=== PATIENT | male | born 1955 | race Caucasian/White ===

== ENCOUNTER 2018-11-27 22:29 | Inpatient (IN) | payer OTHER ==
--- NOTE | 2018-11-27 22:42 | ED ---
General Adult HPI - General Chief complaint: Abdominal Pain Stated complaint: Abd pain Time Seen by Provider: 11/27/18 22:41 Source: patient, RN notes reviewed Mode of arrival: ambulatory Limitations: no limitations - History of Present Illness Initial comments: 63-year-old male presents to the emergency department for multiple complaints. Patient states that on Wednesday he had about 4-5 hours of epigastric pain radiating to the left side of his chest and mid back and states he was also nauseous and dry heaving at this time. States that this resolved after a few hours. Patient states that today he started have a similar situation a few hours ago. States he is still expressing these symptoms but is very mild. States he is nauseous at this time. His biggest complaint is epigastric pain. She denies history of hypertension. States he had some type of arrhythmia in the past but had a negative stress test and I thought this was likely due to emotional stress. Otherwise he has not had any cardiac history. Borderline hypercholesterolemia. Patient has no other complaints at this time including shortness of breath, chest pain, abdominal pain, nausea or vomiting, headache, or visual changes. - Related Data Home Medications Medication Instructions Recorded Confirmed Fruit Based Multivitamin(Unknown) 1 tab PO DAILY 11/28/18 11/28/18 Allergies Allergy/AdvReac Type Severity Reaction Status Date / Time tetanus immune globulin Allergy Anaphylaxis Verified 11/28/18 07:51 Review of Systems ROS Statement: Those systems with pertinent positive or pertinent negative responses have been documented in the HPI. ROS Other: All systems not noted in ROS Statement are negative. Past Medical History Past Medical History: No Reported History History of Any Multi-Drug Resistant Organisms: None Reported Past Surgical History: Hernia Repair, Orthopedic Surgery Past Psychological History: No Psychological Hx Reported Smoking Status: Former smoker Past Alcohol Use History: Rare Past Drug Use History: None Reported - Past Family History Mother Additional Family Medical History / Comment(s): ALS Brother(s) Additional Family Medical History / Comment(s): ALS General Exam Limitations: no limitations General appearance: alert, in no apparent distress Head exam: Present: atraumatic, normocephalic, normal inspection Eye exam: Present: normal appearance, PERRL, EOMI. Absent: scleral icterus, conjunctival injection, periorbital swelling ENT exam: Present: normal exam, mucous membranes moist Neck exam: Present: normal inspection, full ROM. Absent: tenderness, m eningismus, lymphadenopathy Respiratory exam: Present: normal lung sounds bilaterally. Absent: respiratory distress, wheezes, rales, rhonchi, stridor Cardiovascular Exam: Present: regular rate, normal rhythm, normal heart sounds. Absent: systolic murmur, diastolic murmur, rubs, gallop, clicks GI/Abdominal exam: Present: soft, normal bowel sounds. Absent: distended, tenderness (Patient denies epigastric tenderness but has guarding when palpating the epigastric and right and left upper quadrants. No lower abdominal te nderness or guarding.), guarding, rebound, rigid Neurological exam: Present: alert Psychiatric exam: Present: normal affect, normal mood Course Vital Signs 11/27/18 11/28/18 11/28/18 22:32 00:41 03:27 Temperature 98.3 F 98.1 F Pulse Rate 63 68 80 Respiratory 20 18 18 Rate Blood Pressure 152/80 147/84 133/74 O2 Sat by Pulse 97 98 95 Oximetry EKG Findings - EKG Comments: EKG Findings:: NSR, vent rate 60, pr int 170, qtc 414 Medical Decision Making - Medical Decision Making 43-year-old male presents for multiple complaints. States that on Wednesday he had about 4-5 hours of epigastric pain that radiated to the left side of his chest and mid back. States he was also nauseous and dry heaving at that time. His symptoms resolved and then recurred today about 2 days later and lasted several hours. States it is mild at this time. On exam patient has guarding when palpating the epigastric right upper quadrant region but does not have tenderness and denies pain with palpation. CBC did show a white blood cell count of 16.1. CMP is unremarkable. Troponin is negative. Urine negative. CT chest abdomen and pelvis was ordered given patient's symptoms of epigastric chest and back pain. She was reevaluated, resting comfortably and Care was signed out to Dr. Kirk at [address] results - Lab Data Result diagrams: 11/30/18 07:50 11/30/18 07:50 Lab Results 11/27/18 11/27/18 11/27/18 Range/Units 23:05 23:05 23:05 WBC 16.1 H (3.8-10.6) k/uL RBC 5.53 (4.30-5.90) m/uL Hgb 16.0 (13.0-17.5) gm/dL Hct 47.4 (39.0-53.0) % MCV 85.8 (80.0-100.0) fL MCH 29.0 (25.0-35.0) pg MCHC 33.8 (31.0-37.0) g/dL RDW 15.9 H (11.5-15.5) % Plt Count 259 (150-450) k/uL Neutrophils % 86 % Lymphocytes % 8 % Monocytes % 4 % Eosinophils % 1 % Basophils % 1 % Neutrophils # 13.8 H (1.3-7.7) k/uL Lymphocytes # 1.2 (1.0-4.8) k/uL Monocytes # 0.7 (0-1.0) k/uL Eosinophils # 0.2 (0-0.7) k/uL Basophils # 0.1 (0-0.2) k/uL PT 10.3 (9.0-12.0) sec INR 1.0 (<1.2) APTT 26.8 (22.0-30.0) sec Sodium 141 (137-145) mmol/L Potassium 4.2 (3.5-5.1) mmol/L Chloride 105 (98-107) mmol/L Carbon Dioxide 27 (22-30) mmol/L Anion Gap 9 mmol/L BUN 16 (9-20) mg/dL Creatinine 1.05 (0.66-1.25) mg/dL Est GFR (CKD-EPI)AfAm 87 (>60 ml/min/1.73 sqM) Est GFR (CKD-EPI)NonAf 75 (>60 ml/min/1.73 sqM) Glucose 116 H (74-99) mg/dL Calcium 9.1 (8.4-10.2) mg/dL Total Bilirubin 0.5 (0.2-1.3) mg/dL AST 27 (17-59) U/L ALT 25 (21-72) U/L Alkaline Phosphatase 73 (38-126) U/L CK-MB (CK-2) (0.0-2.4) ng/mL Troponin I (0.000-0.034) ng/mL Total Protein 7.2 (6.3-8.2) g/dL Albumin 4.3 (3.5-5.0) g/dL Amylase 55 (30-110) U/L Lipase 130 (23-300) U/L Urine Color Urine Appearance (Clear) Urine pH (5.0-8.0) Ur Specific [place] (1.001-1.035) Urine Protein (Negative) Urine Glucose (UA) (Negative) Urine Ketones (Negative) Urine Blood (Negative) Urine Nitrite (Negative) Urine Bilirubin (Negative) Urine Urobilinogen (<2.0) mg/dL Ur Leukocyte Esterase (Negative) 11/27/18 11/27/18 11/29/18 Range/Units 23:05 23:05 07:26 WBC 8.8 (3.8-10.6) k/uL RBC 5.26 (4.30-5.90) m/uL Hgb 15.0 (13.0-17.5) gm/dL Hct 45.6 (39.0-53.0) % MCV 86.6 (80.0-100.0) fL MCH 28.6 (25.0-35.0) pg MCHC 33.0 (31.0-37.0) g/dL RDW 13.4 (11.5-15.5) % Plt Count 233 (150-450) k/uL Neutrophils % 70 % Lymphocytes % 17 % Monocytes % 9 % Eosinophils % 2 % Basophils % 1 % Neutrophils # 6.2 (1.3-7.7) k/uL Lymphocytes # 1.5 (1.0-4.8) k/uL Monocytes # 0.8 (0-1.0) k/uL Eosinophils # 0.2 (0-0.7) k/uL Basophils # 0.1 (0-0.2) k/uL PT (9.0-12.0) sec INR (<1.2) APTT (22.0-30.0) sec Sodium (137-145) mmol/L Potassium (3.5-5.1) mmol/L Chloride (98-107) mmol/L Carbon Dioxide (22-30) mmol/L Anion Gap mmol/L BUN (9-20) mg/dL Creatinine (0.66-1.25) mg/dL Est GFR (CKD-EPI)AfAm (>60 ml/min/1.73 sqM) Est GFR (CKD-EPI)NonAf (>60 ml/min/1.73 sqM) Glucose (74-99) mg/dL Calcium (8.4-10.2) mg/dL Total Bilirubin (0.2-1.3) mg/dL AST (17-59) U/L ALT (21-72) U/L Alkaline Phosphatase (38-126) U/L CK-MB (CK-2) 0.6 (0.0-2.4) ng/mL Troponin I <0.012 (0.000-0.034) ng/mL Total Protein (6.3-8.2) g/dL Albumin (3.5-5.0) g/dL Amylase (30-110) U/L Lipase (23-300) U/L Urine Color Yellow Urine Appearance Clear (Clear) Urine pH 6.0 (5.0-8.0) Ur Specific [place] 1.022 (1.001-1.035) Urine Protein Negative (Negative) Urine Glucose (UA) Negative (Negative) Urine Ketones Negative (Negative) Urine Blood Negative (Negative) Urine Nitrite Negative (Negative) Urine Bilirubin Negative (Negative) Urine Urobilinogen <2.0 (<2.0) mg/dL Ur Leukocyte Esterase Negative (Negative) 11/29/18 11/29/18 Range/Units 07:26 07:26 WBC (3.8-10.6) k/uL RBC (4.30-5.90) m/uL Hgb (13.0-17.5) gm/dL Hct (39.0-53.0) % MCV (80.0-100.0) fL MCH (25.0-35.0) pg MCHC (31.0-37.0) g/dL RDW (11.5-15.5) % Plt Count (150-450) k/uL Neutrophils % % Lymphocytes % % Monocytes % % Eosinophils % % Basophils % % Neutrophils # (1.3-7.7) k/uL Lymphocytes # (1.0-4.8) k/uL Monocytes # (0-1.0) k/uL Eosinophils # (0-0.7) k/uL Basophils # (0-0.2) k/uL PT 11.8 (9.0-12.0) sec INR 1.1 (<1.2) APTT (22.0-30.0) sec Sodium 141 (137-145) mmol/L Potassium 3.9 (3.5-5.1) mmol/L Chloride 109 H (98-107) mmol/L Carbon Dioxide 24 (22-30) mmol/L Anion Gap 8 mmol/L BUN 11 (9-20) mg/dL Creatinine 1.04 (0.66-1.25) mg/dL Est GFR (CKD-EPI)AfAm 88 (>60 ml/min/1.73 sqM) Est GFR (CKD-EPI)NonAf 76 (>60 ml/min/1.73 sqM) Glucose 89 (74-99) mg/dL Calcium 8.4 (8.4-10.2) mg/dL Total Bilirubin 2.4 H (0.2-1.3) mg/dL AST 139 H (17-59) U/L ALT 163 H (21-72) U/L Alkaline Phosphatase 104 (38-126) U/L CK-MB (CK-2) (0.0-2.4) ng/mL Troponin I (0.000-0.034) ng/mL Total Protein 6.1 L (6.3-8.2) g/dL Albumin 3.5 (3.5-5.0) g/dL Amylase (30-110) U/L Lipase (23-300) U/L Urine Color Urine Appearance (Clear) Urine pH (5.0-8.0) Ur Specific [place] (1.001-1.035) Urine Protein (Negative) Urine Glucose (UA) (Negative) Urine Ketones (Negative) Urine Blood (Negative) Urine Nitrite (Negative) Urine Bilirubin (Negative) Urine Urobilinogen (<2.0) mg/dL Ur Leukocyte Esterase (Negative) Disposition Clinical Impression: Acute cholecystitis Disposition: ADMITTED IP TO THIS HOSP Is patient prescribed a controlled substance at d/c from ED?: No
[2018-11-27] MEDS ORDERED: SODIUM CHLORIDE 0.9% 500 ML 500 ML IV STA (22:53)
[2018-11-27 23:18] LABS: Basophils # (A) 0.1 k/uL (0-0.2); Basophils % (A) 1 %; Eosinophils # (A) 0.2 k/uL (0-0.7); Eosinophils % (A) 1 %; HCT 47.4 % (39.0-53.0); Lymphocytes # (A) 1.2 k/uL (1.0-4.8); Lymphocytes % (A) 8 %; MCHC 33.8 g/dL (31.0-37.0); MCV 85.8 fL (80.0-100.0); Monocytes # (A) 0.7 k/uL (0-1.0); Monocytes % (A) 4 %; Neutrophils # (A) 13.8 k/uL (1.3-7.7); Neutrophils % (A) 86 %; Platelet Count 259 k/uL (150-450); RBC 5.53 m/uL (4.30-5.90); RDW 15.9 % (11.5-15.5); WBC 16.1 k/uL (3.8-10.6)
[2018-11-27 23:24] LABS: Appearance,Urine Clear (Clear); Bilirubin,Urine Negative (Negative); Blood,Urine Negative (Negative); Color,Urine Yellow; Glucose,Urine (UA) Negative (Negative); Ketones,Urine Negative (Negative); Leukocyte Esterase,Urine Negative (Negative); Nitrite,Urine Negative (Negative); Protein,Urine Negative (Negative); Specific Gravity,Urine 1.022 (1.001-1.035); Urobilinogen,Urine <2.0 mg/dL (<2.0)
[2018-11-27 23:26] LABS: Albumin 4.3 g/dL (3.5-5.0); Calcium 9.1 mg/dL (8.4-10.2); Potassium 4.2 mmol/L (3.5-5.1); Total Bilirubin 0.5 mg/dL (0.2-1.3); Total Protein 7.2 g/dL (6.3-8.2)
[2018-11-27 23:30] LABS: Partial Thromboplastin Time 26.8 sec (22.0-30.0); Prothrombin Time 10.3 sec (9.0-12.0)
[2018-11-27 23:50] LABS: Creatine Kinase MB 0.6 ng/mL (0.0-2.4); Troponin I <0.012 ng/mL (0.000-0.034)
[2018-11-28] MEDS ORDERED: HYDROmorphone 0.5 MG/0.5 ML SYRINGE IVP STA (00:25)
--- NOTE | 2018-11-28 02:35 | CT ---
EXAM: CT Chest ,abdomen and pelvis With Intravenous Contrast CLINICAL HISTORY: CP/epigastric pain/back pain TECHNIQUE: Axial computed tomography images of the chest, abdomen and pelvis with intravenous contrast. DLP is 1544.9 mGy-cm. This CT exam was performed using one or more of the following dose reduction techniques: automated exposure control, adjustment of the mA and/or kV according to patient size, and/or use of iterative reconstruction technique. COMPARISON: No relevant prior studies available. FINDINGS: Aorta is non-aneurysmal without dissection. Cholelithiasis. Suspect stones in region of cystic duct. Possible mild mural thickening of gallbladder/mild adjacent fat stranding. Findings are suspicious for cholecystitis. Ultrasound and/or HIDA could be obtained, as indicated. Atelectasis and/or scar. No evidence for edema. No effusions. No consolidation. No evidence for acute pancreatitis or other acute abnormality of the solid viscera. Mild prostate enlargement. No bowel obstruction. Diverticulosis without diverticulitis. No appendicitis. Small duodenal diverticulum incidentally noted. Fat- containing inguinal hernias. Suspect prior hernia mesh placement. Osseous degenerative changes. IMPRESSION: Aorta is non-aneurysmal without dissection. Cholelithiasis with suggestion of stones in region of cystic duct. Possible mild mural thickening of gallbladder/mild adjacent fat stranding. Findings are suspicious for cholecystitis. Ultrasound and/or HIDA could be obtained, as indicated. Incidental findings, as above.
[2018-11-28] MEDS ORDERED: PIPERACILLIN-TAZOBACTAM 3.375 GM in SODIUM CHLORIDE 0.9% 100 ML IVPB STA (03:12)
[2018-11-28] MEDS: SODIUM CHLORIDE 0.9% 1,000 ML IV SCH ×3 (03:30→21:05)
[2018-11-28] MEDS ORDERED: NALOXONE 0.4 MG/ML 1 ML VIAL IV PRN (03:50)
[2018-11-28] MEDS ORDERED: ONDANSETRON 4 MG/2 ML VIAL IVP PRN (03:50)
[2018-11-28 05:30] VITALS: BMI 30.2
[2018-11-28] MEDS: MORPHINE SULFATE 4 MG/ML SYRINGE IV PRN (08:10)
--- NOTE | 2018-11-28 11:28 | P.HPIM ---
History of Present Illness This is a pleasant 63 years old male with past medical history of hernia repair. No other significant past medical history. He was not on home medication. He presents because of recurrent abdominal pain that happened 2 days ago, went away and came back yesterday, patient this. Umbilical about it/10 in severity felt like squeezing comes in waves. Associated with worst part and the RUQ area with tenderness. Also associated with nausea vomiting, he vomited about 5-6 times with no blood. He has little bowel movement with no blood. No shoulder pain. No fever. No chest pain or dyspnea. Patient is afebrile and vitals are stable. He has mild leukocytosis of 16.1 K, rest of labs including liver enzymes and creatinine are within normal limits. Urinalysis is not significant for infection. EKG showing normal sinus rhythm at [address] of the abdomen and pelvis with intravenous contrast showing stones in the region of the cystic duct and possible cholecystitis. No other acute abnormality as per radiologist. On admission patient was started on pain medication and Zosyn as well as IV fluids. Review of Systems CONSTITUTIONAL: No fever, no malaise, no fatigue. HEENT: No recent visual problems or hearing problems. Denied any sore throat. CARDIOVASCULAR: No orthopnea, PND, no palpitations, no syncope. PULMONARY: No shortness of breath, no cough, no hemoptysis. GASTROINTESTINAL: No diarrhea, no nausea, no vomiting, no abdominal pain. Normoactive bowel sounds. NEUROLOGICAL: No headaches, no weakness, no numbness. HEMATOLOGICAL: Denies any bleeding or petechiae. GENITOURINARY: Denies any burning micturition, frequency, or urgency. MUSCULOSKELETAL/RHEUMATOLOGICAL: Denies any joint pain, swelling, or any muscle pain. ENDOCRINE: Denies any polyuria or polydipsia. Past Medical History Past Medical History: No Reported History History of Any Multi-Drug Resistant Organisms: None Reported Past Surgical History: Hernia Repair, Orthopedic Surgery Additional Past Surgical History / Comment(s): Left knee surgery Past Psychological History: No Psychological Hx Reported Smoking Status: Former smoker Past Alcohol Use History: Rare Additional Past Alcohol Use History / Comment(s): quit smoking 1989 Past Drug Use History: None Reported - Past Family History Mother Additional Family Medical History / Comment(s): ALS Brother(s) Additional Family Medical History / Comment(s): ALS Medications and Allergies Home Medications Medication Instructions Recorded Confirmed Type Fruit Based Multivitamin(Unknown) 1 tab PO DAILY 11/28/18 11/28/18 History Allergies Allergy/AdvReac Type Severity Reaction Status Date / Time tetanus immune globulin Allergy Anaphylaxis Verified 11/28/18 07:51 Physical Exam Vitals: Vital Signs Temp Pulse Pulse Resp BP BP Pulse Ox 11/28/18 07:40 16 11/28/18 05:30 98.5 F 71 18 122/94 94 L 11/28/18 03:27 98.1 F 80 18 133/74 95 11/28/18 00:41 68 18 147/84 98 11/27/18 22:32 98.3 F 63 20 152/80 97 Intake and Output 11/27/18 11/28/18 11/28/18 22:59 06:59 14:59 Intake Total 120 Balance 120 Intake: Intake, IV Titration 120 Amount Sodium Chloride 0.9% 1, 120 000 ml @ 120 mls/hr IV . Q8H20M [facility] Rx#:[id number] Other: Voiding Method Toilet Toilet Weight 92.986 kg GENERAL: The patient is alert and oriented x3, not in any acute distress. Well developed, well nourished. HEENT: Pupils are round and equally reacting to light. EOMI. No scleral icterus. No conjunctival pallor. Normocephalic, atraumatic. No pharyngeal erythema. No thyromegaly. CARDIOVASCULAR: S1 and S2 present. No murmurs, rubs, or gallops. PULMONARY: Chest is clear to auscultation, no wheezing or crackles. -ABDOMEN: Soft, mild RUQ tenderness, no rebound tenderness, nondistended, normoactive bowel sounds. No palpable organomegaly. MUSCULOSKELETAL: No joint swelling or deformity. EXTREMITIES: No cyanosis, clubbing, or pedal edema. NEUROLOGICAL: Gross neurological examination did not reveal any focal deficits. SKIN: No rashes. Results CBC & Chem 7: 11/27/18 23:05 11/27/18 23:05 Labs: Abnormal Lab Results - Last 24 Hours (Table) 11/27/18 11/27/18 Range/Units 23:05 23:05 WBC 16.1 H (3.8-10.6) k/uL RDW 15.9 H (11.5-15.5) % Neutrophils # 13.8 H (1.3-7.7) k/uL Glucose 116 H (74-99) mg/dL Thrombosis Risk Factor Assmnt - Choose All That Apply Any of the Below Risk Factors Present?: Yes Each Factor Represents 1 point: Obesity (BMI >25) Other Risk Factors: Yes Each Risk Factor Represents 2 Points: Age 61-74 years Other congenital or acquired thrombophilia - If yes, enter type in comment: No Thrombosis Risk Factor Assessment Total Risk Factor Score: 3 Thrombosis Risk Factor Assessment Level: Moderate Risk Assessment and Plan Assessment: Most likely acute cholecystitis RUQ tenderness secondary to above Gallstone and stenosis close to cystic duct Leukocytosis, secondary to above Plan: This is a pleasant 63 years old male who presents with acute cholecystitis. Continue with IV fluids, antibiotics and pain management. We'll do a liver ultrasound and follow-up with surgery recommendation. Labs and medication were reviewed.. Continue same treatment. Continue with symptomatic treatment. Resume home medication. Monitor lytes and vitals. DVT and GI prophylaxis. Further recommendations of the clinical course of the patient DVT prophylaxis: Subcutaneous heparin GI Prophylaxis: Pepcid PT/OT: Pending Prognosis is guarded
[2018-11-28] MEDS: PIPERACILLIN-TAZOBACTAM 3.375 GM in SODIUM CHLORIDE 0.9% 100 ML IVPB SCH ×2 (11:56→21:05)
--- NOTE | 2018-11-28 15:22 | US ---
EXAMINATION TYPE: US liver DATE OF EXAM: 11/28/2018 COMPARISON: Correlation CT same day CLINICAL HISTORY: 63-year-old male Cholecystitis. ABD pain, abnormal CT TECHNIQUE: Multiple sonographic images of the right upper quadrant are obtained. FINDINGS: EXAM MEASUREMENTS: Liver Length: 15.3 cm Gallbladder Wall: 0.4 cm CBD: 0.8 cm Right Kidney: 9.7 x 4.9 x 5.0 cm Pancreas: wnl, head and tail obscured by overlying bowel gas Liver: wnl Gallbladder: Hydropic with Sludge, gallstones, thickened wall Evidence for sonographic Maharaj's sign: No CBD: Dilated Right Kidney: wnl IMPRESSION: 1. Bile duct dilated at 8 mm. Correlate with alkaline phosphatase and bilirubin levels to exclude rhina iary obstruction/choledocholithiasis. 2. Hydropic gallbladder with sludge, calculi, and mild wall thickening. However, sonographic Maharaj s ign is reported absent. Correlate for any pain medication administration in the ER, in which case, ea rly acute cholecystitis would be difficult to exclude. If further imaging evaluation is desired, HIDA scan can be performed.
--- NOTE | 2018-11-28 17:54 | P.GSCN ---
History of Present Illness Consult date: 11/28/18 History of present illness: This is a 63-year-old male who presents with a chief complaint of right upper quadrant pain which began on Wednesday. Wednesday night the pain was bad enough that he presented to the emergency room. He denies any nausea or vomiting. He denies any change in his bowel movements. He's had similar pains before but they've never lasted as long. He denies fevers or chills. He states that today's feeling somewhat better however he can still feel minor pains in his right upper quadrant. Specimen surgical history significant only for a laparos copic inguinal hernia repair. He denies any past medical history. He is not on any medications. Past Medical History Past Medical History: No Reported History History of Any Multi-Drug Resistant Organisms: None Reported Past Surgical History: Hernia Repair, Orthopedic Surgery Additional Past Surgical History / Comment(s): Left knee surgery Past Psychological History: No Psychological Hx Reported Smoking Status: Former smoker Past Alcohol Use History: Rare Additional Past Alcohol Use History / Comment(s): quit smoking 1989 Past Drug Use History: None Reported - Past Family History Mother Additional Family Medical History / Comment(s): ALS Brother(s) Additional Family Medical History / Comment(s): ALS Medications and Allergies Home Medications Medication Instructions Recorded Confirmed Type Fruit Based Multivitamin(Unknown) 1 tab PO DAILY 11/28/18 11/28/18 History Allergies Allergy/AdvReac Type Severity Reaction Status Date / Time tetanus immune globulin Allergy Anaphylaxis Verified 11/28/18 07:51 Surgical - Exam Osteopathic Statement: *. No significant issues noted on an osteopathic structural exam other than those noted in the History and Physical/Consult. Vital Signs Temp Pulse Resp BP Pulse Ox 98.3 F 63 20 152/80 97 11/27/18 22:32 11/27/18 22:32 11/27/18 22:32 11/27/18 22:32 11/27/18 22:32 - General well developed, well nourished, no distress - Eyes PERRL - Neck trachea midline - Respiratory normal expansion, normal respiratory effort - Cardiovascular Rhythm: regular - Abdomen Nondistended minimal tenderness palpation in the right upper quadrant. Abdomen: soft - Neurologic normal coordination, normal sensation - Psychiatric oriented to time, oriented to person, oriented to place Results - Labs 11/27/18 23:05 11/27/18 23:05 Abnormal Lab Results - Last 24 Hours (Table) 11/27/18 11/27/18 Range/Units 23:05 23:05 WBC 16.1 H (3.8-10.6) k/uL RDW 15.9 H (11.5-15.5) % Neutrophils # 13.8 H (1.3-7.7) k/uL Glucose 116 H (74-99) mg/dL Diabetes panel 11/27/18 Range/Units 23:05 Sodium 141 (137-145) mmol/L Potassium 4.2 (3.5-5.1) mmol/L Chloride 105 (98-107) mmol/L Carbon Dioxide 27 (22-30) mmol/L BUN 16 (9-20) mg/dL Creatinine 1.05 (0.66-1.25) mg/dL Glucose 116 H (74-99) mg/dL Calcium 9.1 (8.4-10.2) mg/dL AST 27 (17-59) U/L ALT 25 (21-72) U/L Alkaline Phosphatase 73 (38-126) U/L Total Protein 7.2 (6.3-8.2) g/dL Albumin 4.3 (3.5-5.0) g/dL Calcium panel 11/27/18 Range/Units 23:05 Calcium 9.1 (8.4-10.2) mg/dL Albumin 4.3 (3.5-5.0) g/dL Pituitary panel 11/27/18 Range/Units 23:05 Sodium 141 (137-145) mmol/L Potassium 4.2 (3.5-5.1) mmol/L Chloride 105 (98-107) mmol/L Carbon Dioxide 27 (22-30) mmol/L BUN 16 (9-20) mg/dL Creatinine 1.05 (0.66-1.25) mg/dL Glucose 116 H (74-99) mg/dL Calcium 9.1 (8.4-10.2) mg/dL Adrenal panel 11/27/18 Range/Units 23:05 Sodium 141 (137-145) mmol/L Potassium 4.2 (3.5-5.1) mmol/L Chloride 105 (98-107) mmol/L Carbon Dioxide 27 (22-30) mmol/L BUN 16 (9-20) mg/dL Creatinine 1.05 (0.66-1.25) mg/dL Glucose 116 H (74-99) mg/dL Calcium 9.1 (8.4-10.2) mg/dL Total Bilirubin 0.5 (0.2-1.3) mg/dL AST 27 (17-59) U/L ALT 25 (21-72) U/L Alkaline Phosphatase 73 (38-126) U/L Total Protein 7.2 (6.3-8.2) g/dL Albumin 4.3 (3.5-5.0) g/dL Assessment and Plan Assessment: Acute cholecystitis Plan: Patient has clinical signs and imaging consistent with acute cholecystitis. I discussed laparoscopic cholecystectomy with the patient. Risks benefits and alternatives including risks of bleeding infection damage to surrounding tissue need for further operation need for conversion to open and common bile duct injury were all discussed with the patient in detail he stated he understood these risks agreed and consented to the procedure. He'll be continued on IV antibiotics. Nothing by mouth after midnight. He may have clears tonight. Plan for surgery tomorrow
[2018-11-28] MEDS: FAMOTIDINE 20 MG/2 ML VIAL IV SCH (21:06)
[2018-11-28] MEDS: HEPARIN SODIUM,PORCINE 5,000 UNIT/ML 1 ML VIAL SQ SCH (21:06)
[2018-11-29] MEDS: PIPERACILLIN-TAZOBACTAM 3.375 GM in SODIUM CHLORIDE 0.9% 100 ML IVPB SCH ×3 (04:28→19:43)
[2018-11-29] MEDS: SODIUM CHLORIDE 0.9% 1,000 ML IV SCH ×3 (04:28→21:44)
--- NOTE | 2018-11-29 07:28 | P.PN ---
Subjective This is a pleasant 63 years old male with past medical history of hernia repair. No other significant past medical history. He was not on home medication. He presents because of recurrent abdominal pain that happened 2 days ago, went away and came back yesterday, patient this. Umbilical about it/10 in severity felt like squeezing comes in waves. Associated with worst part and the RUQ area with tenderness. Also associated with nausea vomiting, he vomited about 5-6 times with no blood. He has little bowel movement with no blood. No shoulder pain. No fever. No chest pain or dyspnea. Patient is afebrile and vitals are stable. He has mild leukocytosis of 16.1 K, rest of labs including liver enzymes and creatinine are within normal limits. Urinalysis is not significant for infection. EKG showing normal sinus rhythm at [address] of the abdomen and pelvis with intravenous contrast showing stones in the region of the cystic duct and possible cholecystitis. No other acute abnormality as per radiologist. On admission patient was started on pain medication and Zosyn as well as IV fluids. 11/29/2018 Patient came with abdominal pain and right upper quadrant tenderness, pain is improving. No more nausea vomiting. However today he is nothing by mouth for possible laparoscopic cholecystectomy by the surgical team. Yesterday we repeated his liver ultrasound in view of abnormal gallbladder and biliary passages seen on the CAT scan of the abdomen. Liver with ultrasound showing dilated bile duct at 8 mm and hydropic gallbladder with sludge, calculi and mild wall thickening that goes on with his diagnosis of acute cholecystitis. Review of systems CONSTITUTIONAL: No fever, no malaise, no fatigue. HEENT: No recent visual problems or hearing problems. Denied any sore throat. CARDIOVASCULAR: No orthopnea, PND, no palpitations, no syncope. PULMONARY: No shortness of breath, no cough, no hemoptysis. GASTROINTESTINAL: Normoactive bowel sounds. NEUROLOGICAL: No headaches, no weakness, no numbness. HEMATOLOGICAL: Denies any bleeding or petechiae. GENITOURINARY: Denies any burning micturition, frequency, or urgency. MUSCULOSKELETAL/RHEUMATOLOGICAL: Denies any joint pain, swelling, or any muscle pain. ENDOCRINE: Denies any polyuria or polydipsia. Active Medications Generic Name Dose Route Start Last Admin Trade Name Freq PRN Reason Stop Dose Admin Famotidine 20 mg 11/28/18 21:00 11/28/18 21:06 Pepcid IV 20 mg Q12HR [facility] Administration Heparin Sodium (Porcine) 5,000 unit 11/28/18 21:00 11/28/18 21:06 Heparin SQ 5,000 unit Q12HR [facility] Administration Sodium Chloride 1,000 mls @ 120 mls/hr 11/28/18 03:30 11/29/18 04:28 Saline 0.9% IV 120 mls/hr .Q8H20M [facility] Administration Piperacillin Sod/Tazobactam 100 mls @ 25 mls/hr 11/28/18 12:00 11/29/18 04:28 Sod 3.375 gm/ Sodium Chloride IVPB 25 mls/hr Q8H [facility] Administration Morphine Sulfate 4 mg 11/28/18 03:50 11/28/18 08:10 Morphine Sulfate (Inj) IV 4 mg Q4HR PRN Administration Severe Pain Naloxone HCl 0.2 mg 11/28/18 03:50 Narcan IV Q2M PRN Opioid Reversal Ondansetron HCl 4 mg 11/28/18 03:50 Zofran IVP Q8HR PRN Nausea And Vomiting Objective - Vital Signs Vital signs: Vital Signs Temp 98.4 F 11/29/18 05:00 Pulse 63 11/29/18 05:00 Resp 18 11/29/18 05:00 BP 113/64 11/29/18 05:00 Pulse Ox 93 L 11/29/18 05:00 Intake & Output 11/28/18 11/29/18 11/29/18 18:59 06:59 18:59 Intake Total 1080 2240 Balance 1080 2240 Intake: Intake, IV Titration 1080 1640 Amount Piperacillin-Tazobactam 3 100 200 .375 gm In Sodium Chloride 0.9% 100 ml @ 25 mls/hr IVPB Q8H [facility] Rx#: [id number] Sodium Chloride 0.9% 1, 980 1440 000 ml @ 120 mls/hr IV . Q8H20M [facility] Rx#:[id number] Oral 600 Other: Voiding Method Toilet Toilet # Voids 3 4 - Exam GENERAL: The patient is alert and oriented x3, not in any acute distress. Well developed, well nourished. HEENT: Pupils are round and equally reacting to light. EOMI. No scleral icterus. No conjunctival pallor. Normocephalic, atraumatic. No pharyngeal erythema. No thyromegaly. CARDIOVASCULAR: S1 and S2 present. No murmurs, rubs, or gallops. PULMONARY: Chest is clear to auscultation, no wheezing or crackles. -ABDOMEN: Soft, mild RUQ tenderness, no rebound tenderness, nondistended, normoactive bowel sounds. No palpable organomegaly. MUSCULOSKELETAL: No joint swelling or deformity. EXTREMITIES: No cyanosis, clubbing, or pedal edema. NEUROLOGICAL: Gross neurological examination did not reveal any focal deficits. SKIN: No rashes. - Labs CBC & Chem 7: 11/27/18 23:05 11/27/18 23:05 Assessment and Plan Assessment: Most likely acute cholecystitis RUQ tenderness secondary to above Gallstone and stenosis close to cystic duct Leukocytosis, secondary to above Plan: This is a pleasant 63 years old male who presents with acute cholecystitis. Continue with IV fluids, antibiotics and pain management. Will follow-up in the surgery recommendation and for postop care, patient is for laparoscopic cholecystectomy by the surgical team. Follow-up WBC Labs and medication were reviewed.. Continue same treatment. Continue with symptomatic treatment. Resume home medication. Monitor lytes and vitals. DVT and GI prophylaxis. Further recommendations of the clinical course of the patient DVT prophylaxis: Subcutaneous heparin GI Prophylaxis: Pepcid PT/OT: Pending Prognosis is guarded
[2018-11-29 07:39] LABS: Basophils # (A) 0.1 k/uL (0-0.2); Basophils % (A) 1 %; Eosinophils # (A) 0.2 k/uL (0-0.7); Eosinophils % (A) 2 %; HCT 45.6 % (39.0-53.0); Lymphocytes # (A) 1.5 k/uL (1.0-4.8); Lymphocytes % (A) 17 %; MCH 28.6 pg (25.0-35.0); MCV 86.6 fL (80.0-100.0); Mean Platelet Volume 6.9; Monocytes # (A) 0.8 k/uL (0-1.0); Monocytes % (A) 9 %; Neutrophils # (A) 6.2 k/uL (1.3-7.7); Neutrophils % (A) 70 %; Platelet Count 233 k/uL (150-450); RBC 5.26 m/uL (4.30-5.90); RDW 13.4 % (11.5-15.5); WBC 8.8 k/uL (3.8-10.6)
[2018-11-29 07:42] LABS: INR 1.1 (<1.2); Prothrombin Time 11.8 sec (9.0-12.0)
[2018-11-29] MEDS: FAMOTIDINE 20 MG/2 ML VIAL IV SCH ×2 (07:42→21:22)
[2018-11-29] MEDS: HEPARIN SODIUM,PORCINE 5,000 UNIT/ML 1 ML VIAL SQ SCH ×2 (07:43→21:23)
[2018-11-29 07:48] LABS: Albumin 3.5 g/dL (3.5-5.0); Calcium 8.4 mg/dL (8.4-10.2); Potassium 3.9 mmol/L (3.5-5.1); Total Bilirubin 2.4 mg/dL (0.2-1.3); Total Protein 6.1 g/dL (6.3-8.2)
--- NOTE | 2018-11-29 14:08 | P.PN ---
Subjective Progress Note Date: 11/29/18 Patient is feeling better today however he was complaining of jaundice. Denies abdominal pain and NV. Objective - Vital Signs Vital signs: Vital Signs Temp 98.0 F 11/29/18 11:21 Pulse 59 L 11/29/18 11:21 Resp 18 11/29/18 11:21 BP 143/77 11/29/18 11:21 Pulse Ox 96 11/29/18 11:21 Intake & Output 11/28/18 11/29/18 11/29/18 18:59 06:59 18:59 Intake Total 1080 2240 1550 Balance 1080 2240 1550 Intake: Intake, IV Titration 1080 1640 1200 Amount Piperacillin-Tazobactam 3 100 200 200 .375 gm In Sodium Chloride 0.9% 100 ml @ 25 mls/hr IVPB Q8H [facility] Rx#: [id number] Sodium Chloride 0.9% 1, 980 1440 1000 000 ml @ 120 mls/hr IV . Q8H20M [facility] Rx#:[id number] Oral 600 350 Other: Voiding Method Toilet Toilet Toilet # Voids 3 4 4 - Constitutional General appearance: Present: average body habitus, cooperative - EENT Eyes: Present: scleral icterus - Respiratory Details: nonlabored - Cardiovascular Rhythm: regular - Gastrointestinal Gastrointestinal Comment(s): S/NT/ND - Psychiatric Psychiatric: Present: A&O x's 3 - Labs CBC & Chem 7: 11/29/18 07:26 11/29/18 07:26 Labs: Abnormal Lab Results - Last 24 Hours (Table) 11/29/18 Range/Units 07:26 Chloride 109 H (98-107) mmol/L Total Bilirubin 2.4 H (0.2-1.3) mg/dL AST 139 H (17-59) U/L ALT 163 H (21-72) U/L Total Protein 6.1 L (6.3-8.2) g/dL Assessment and Plan Assessment: Acute cholecystitis Hyperbilirubinemia Plan: Surgery cancled for today secondary to rise in patients bilirubin and suspicion for choledocholithiasis. MRCP ordered, if he does not pass stone on his own will plan on GI consult for possible ERCP. Repeat liver enzymes in AM. Plan for lap cayden once bili returns to normal and bile duct is cleared.
[2018-11-29] MEDS ORDERED: BUTALB/APAP/CAFF 50-325-40MG TAB PO PRN (18:11)
[2018-11-30] MEDS: PIPERACILLIN-TAZOBACTAM 3.375 GM in SODIUM CHLORIDE 0.9% 100 ML IVPB SCH ×3 (03:59→18:01)
[2018-11-30] MEDS ORDERED: HYDROmorphone 0.5 MG/0.5 ML SYRINGE IVP PRN (06:00)
[2018-11-30] MEDS ORDERED: ONDANSETRON 4 MG/2 ML VIAL IVP ONE (06:00)
[2018-11-30 07:04] LABS: Glucose,Whole Blood 83 mg/dL (75-99)
--- NOTE | 2018-11-30 07:35 | P.PN ---
Subjective This is a pleasant 63 years old male with past medical history of hernia repair. No other significant past medical history. He was not on home medication. He presents because of recurrent abdominal pain that happened 2 days ago, went away and came back yesterday, patient this. Umbilical about it/10 in severity felt like squeezing comes in waves. Associated with worst part and the RUQ area with tenderness. Also associated with nausea vomiting, he vomited about 5-6 times with no blood. He has little bowel movement with no blood. No shoulder pain. No fever. No chest pain or dyspnea. Patient is afebrile and vitals are stable. He has mild leukocytosis of 16.1 K, rest of labs including liver enzymes and creatinine are within normal limits. Urinalysis is not significant for infection. EKG showing normal sinus rhythm at [address] of the abdomen and pelvis with intravenous contrast showing stones in the region of the cystic duct and possible cholecystitis. No other acute abnormality as per radiologist. On admission patient was started on pain medication and Zosyn as well as IV fluids. 11/29/2018 Patient came with abdominal pain and right upper quadrant tenderness, pain is improving. No more nausea vomiting. However today he is nothing by mouth for possible laparoscopic cholecystectomy by the surgical team. Yesterday we repeated his liver ultrasound in view of abnormal gallbladder and biliary passages seen on the CAT scan of the abdomen. Liver with ultrasound showing dilated bile duct at 8 mm and hydropic gallbladder with sludge, calculi and mild wall thickening that goes on with his diagnosis of acute cholecystitis. 11/30/2018 Patient's abdominal pain is resolved. No nausea vomiting. No other complaint. Yesterday his laparoscopic cholecystectomy was canceled because of elevated liver enzymes serum bilirubin went up from 0.5 to 2.4, her liver enzymes AST 139 and ALT 163. MRCP is ordered and is pending. Depending on the results we may Need ERCP if the patient still have stones in his biliary ducts. Patient remains afebrile and dressed vitals are stable. Review of systems CONSTITUTIONAL: No fever, no malaise, no fatigue. HEENT: No recent visual problems or hearing problems. Denied any sore throat. CARDIOVASCULAR: No orthopnea, PND, no palpitations, no syncope. PULMONARY: No shortness of breath, no cough, no hemoptysis. GASTROINTESTINAL: Normoactive bowel sounds. NEUROLOGICAL: No headaches, no weakness, no numbness. HEMATOLOGICAL: Denies any bleeding or petechiae. GENITOURINARY: Denies any burning micturition, frequency, or urgency. MUSCULOSKELETAL/RHEUMATOLOGICAL: Denies any joint pain, swelling, or any muscle pain. ENDOCRINE: Denies any polyuria or polydipsia. Active Medications Generic Name Dose Route Start Last Admin Trade Name Freq PRN Reason Stop Dose Admin Acetaminophen/Butalbital/Caffeine 1 each 11/29/18 18:11 Fioricet 50-325-40 PO ONCE PRN Headache Famotidine 20 mg 11/28/18 21:00 11/29/18 21:22 Pepcid IV 20 mg Q12HR [facility] Administration Heparin Sodium (Porcine) 5,000 unit 11/28/18 21:00 11/29/18 21:23 Heparin SQ 5,000 unit Q12HR [facility] Administration Hydromorphone HCl 0.5 mg 11/30/18 06:00 Dilaudid IVP 12/01/18 06:01 Q5M PRN Pain Control Sodium Chloride 1,000 mls @ 75 mls/hr 11/28/18 03:30 11/29/18 21:44 Saline 0.9% IV 75 mls/hr .[id number] [facility] Administration Piperacillin Sod/Tazobactam 100 mls @ 25 mls/hr 11/28/18 12:00 11/30/18 03:59 Sod 3.375 gm/ Sodium Chloride IVPB 25 mls/hr Q8H [facility] Administration Lactated Ringer's 1,000 mls @ 20 mls/hr 11/30/18 06:00 Lactated Ringers IV .Q24H [facility] Morphine Sulfate 4 mg 11/28/18 03:50 11/28/18 08:10 Morphine Sulfate (Inj) IV 4 mg Q4HR PRN Administration Severe Pain Naloxone HCl 0.2 mg 11/28/18 03:50 Narcan IV Q2M PRN Opioid Reversal Ondansetron HCl 4 mg 11/28/18 03:50 Zofran IVP Q8HR PRN Nausea And Vomiting Objective - Vital Signs Vital signs: Vital Signs Temp 98.2 F 11/30/18 05:00 Pulse 69 11/30/18 05:00 Resp 16 11/30/18 05:00 BP 117/69 11/30/18 05:00 Pulse Ox 93 L 11/30/18 05:00 Intake & Output 11/29/18 11/30/18 11/30/18 18:59 06:59 18:59 Intake Total 1550 1765 Balance 1550 1765 Intake: Intake, IV Titration 1200 1165 Amount Piperacillin-Tazobactam 3 200 200 .375 gm In Sodium Chloride 0.9% 100 ml @ 25 mls/hr IVPB Q8H [facility] Rx#: [id number] Sodium Chloride 0.9% 1, 1000 965 000 ml @ 75 mls/hr IV . [id number] [facility] Rx#:[id number] Oral 350 600 Other: Voiding Method Toilet Toilet # Voids 4 2 - Exam GENERAL: The patient is alert and oriented x3, not in any acute distress. Well developed, well nourished. HEENT: Pupils are round and equally reacting to light. EOMI. No scleral icterus. No conjunctival pallor. Normocephalic, atraumatic. No pharyngeal erythema. No thyromegaly. CARDIOVASCULAR: S1 and S2 present. No murmurs, rubs, or gallops. PULMONARY: Chest is clear to auscultation, no wheezing or crackles. -ABDOMEN: Soft, mild RUQ tenderness, no rebound tenderness, nondistended, normoactive bowel sounds. No palpable organomegaly. MUSCULOSKELETAL: No joint swelling or deformity. EXTREMITIES: No cyanosis, clubbing, or pedal edema. NEUROLOGICAL: Gross neurological examination did not reveal any focal deficits. SKIN: No rashes. - Labs CBC & Chem 7: 11/29/18 07:26 11/29/18 07:26 Labs: Abnormal Lab Results - Last 24 Hours (Table) 11/29/18 Range/Units 07:26 Chloride 109 H (98-107) mmol/L Total Bilirubin 2.4 H (0.2-1.3) mg/dL AST 139 H (17-59) U/L ALT 163 H (21-72) U/L Total Protein 6.1 L (6.3-8.2) g/dL Assessment and Plan Assessment: acute cholecystitis RUQ tenderness secondary to above, resolved Gallstone and stenosis close to cystic duct elevated liver enzymes and bilirubin Leukocytosis, secondary to above. Resolved Plan: This is a pleasant 63 years old male who presents with acute cholecystitis. Continue with IV fluids, antibiotics and pain management. Will follow-up in the surgery recommendation and for postop care, hold laparoscopic cholecystectomy per surgical team. Follow-up MRCP . Labs and medication were reviewed.. Continue same treatment. Continue with symptomatic treatment. Resume home medication. Monitor lytes and vitals. DVT and GI prophylaxis. Further recommendations of the clinical course of the patient DVT prophylaxis: Subcutaneous heparin GI Prophylaxis: Pepcid PT/OT: Pending Prognosis is guarded
--- NOTE | 2018-11-30 08:02 | MR ---
EXAMINATION TYPE: MR MRCP DATE OF EXAM: 11/30/2018 COMPARISON: CT from 2 days ago. HISTORY: Choledocholithiasis; Epigastric and RLQ pain. Abnormal CT. Standard multiplanar, multisequence MRI departmental protocol Multiplanar, multisequence images of the abdomen were acquired. Thin and thick slice MRCP images are performed on MRI scanner. FINDINGS: Liver/GB/Pancreas/Biliary System: Liver is overall normal in size with some signal dropout suggesting mild diffuse fatty infiltration. No worrisome solid or cystic intrahepatic masses are identified. Pa ncreas is normal in size with 4 mm cystic focus pancreatic tail axial image 25 series 401 correlating with coronal image 21 series 201. Subcentimeter lesion favor benign. Gallbladder is redemonstrated w ith distended margins. There are dependent small gallstones again seen axial image 24. No pericholecy stic inflammation or abnormal gallbladder wall thickening. No surrounding fluid. Pancreatic duct is visualized without suspicious dilatation. Common bile duct measures up to 7 mm rosanna r the tripp hepatis. There is gradual tapering to the ampulla. There is persistent area of round low signal near the ampulla image 22 series 201 correlating with MRCP image 49 series 701 suspicious for small distal common bile duct stone. Based on CT correlation there is suspected interval distal progr ession of this calculus which was suspected near level of cystic duct on CT. There is tortuous course to the cystic duct making evaluation suboptimal. The tripp hepatis without definitive calculus at th is level. Other: Lung bases are clear. Spleen and both adrenal glands are normal in size. No concerning renal m asses or hydronephrosis. No suspicious small or large bowel dilatation. Diverticula in the left and s igmoid colon are present. Suspected duodenal diverticulum less well seen on MRI versus CT. Osseous st ructures are intact. Prominent left neural sheath noted lower thoracic level axial image 34. No suspi cious abdominal adenopathy. No abdominal ascites. IMPRESSION: Common bile duct is minimally dilated near tripp hepatis with gradual tapering. Redemonst ration of small intraluminal gallstones without secondary MRI evidence for acute cholecystitis. There is suspected small distal CBD stone which is felt to have progressed towards the ampulla versus CT 2 days earlier.
[2018-11-30] MEDS: FAMOTIDINE 20 MG/2 ML VIAL IV SCH ×2 (08:10→21:18)
[2018-11-30] MEDS: HEPARIN SODIUM,PORCINE 5,000 UNIT/ML 1 ML VIAL SQ SCH ×2 (08:11→21:17)
[2018-11-30 08:42] LABS: Basophils # (A) 0.1 k/uL (0-0.2); Basophils % (A) 1 %; Eosinophils # (A) 0.3 k/uL (0-0.7); Eosinophils % (A) 4 %; HCT 46.5 % (39.0-53.0); HGB 15.3 gm/dL (13.0-17.5); Lymphocytes # (A) 1.6 k/uL (1.0-4.8); Lymphocytes % (A) 20 %; MCH 28.5 pg (25.0-35.0); MCHC 32.9 g/dL (31.0-37.0); MCV 86.6 fL (80.0-100.0); Monocytes # (A) 0.5 k/uL (0-1.0); Monocytes % (A) 6 %; Neutrophils # (A) 5.3 k/uL (1.3-7.7); Neutrophils % (A) 66 %; Platelet Count 252 k/uL (150-450); RBC 5.37 m/uL (4.30-5.90); RDW 13.4 % (11.5-15.5)
[2018-11-30 08:49] LABS: Albumin 3.7 g/dL (3.5-5.0); Calcium 8.8 mg/dL (8.4-10.2); Potassium 4.2 mmol/L (3.5-5.1); Total Bilirubin 1.3 mg/dL (0.2-1.3); Total Protein 6.5 g/dL (6.3-8.2)
[2018-11-30] MEDS ORDERED: INDOMETHACIN 50MG SUPPOSITORY RECTAL ONE (12:00)
[2018-11-30] MEDS ORDERED: IV FLUID CONTINUATION 500 ML IV ONE ×2 (12:10)
[2018-11-30] MEDS ORDERED: fentaNYL (PF) 50 MCG/ML 2 ML AMP ONE (12:15)
[2018-11-30] MEDS ORDERED: PROPOFOL 10 MG/ML 20 ML VIAL IV ONE (12:15)
[2018-11-30] MEDS ORDERED: MIDAZOLAM 2 MG/2 ML VIAL ONE (12:15)
[2018-11-30] MEDS ORDERED: KETAMINE 10 MG/ML 20 ML VIAL ONE (12:15)
[2018-11-30] MEDS ORDERED: GLUCAGON 1 MG/ML VIAL ONE (12:15)
[2018-11-30] MEDS ORDERED: LIDOCAINE 1% INJ 10MG/ML (20 ML MDV) ONE (12:15)
[2018-11-30] MEDS ORDERED: IOPAMIDOL-300 50ML BTL MISCELLANE ONE (12:32)
[2018-11-30] MEDS ORDERED: SODIUM CHLORIDE 0.9% 500 ML 500 ML IV ONE ×2 (12:50)
--- NOTE | 2018-11-30 13:07 | P.PCN ---
Date of Procedure: 11/30/18 Procedure(s) Performed: Brief history: Patient is a 63-year-old white male scheduled for an ERCP as part of evaluation of abdominal pain and elevated serum transaminases for the last 2 days' duration. He had an MRCP done this morning because of elevated bilirubin which showed a small CBD stone. Procedure performed: ERCP with biliary sphincterotomy and balloon stone extraction Preoperative diagnoses: Abdominal pain/CBD stone/elevated LFTs IV sedation per anesthesia: Procedure: After informed consent was obtained from the patient and after the risks benefits and complications including bleeding perforation and pancreatitis explained in detail the patient was brought into the [facility] and IV conscious sedation was administered by anesthesia under continuous monitoring. The Olympus side-viewing duodenoscope was then inserted into the mouth and esophagus intubated without any difficulty. The scope was gradually advanced into the stomach and duodenum. The major papilla was identified without any difficulty. There was a large periampullary diverticulum noted. The ampullary orifice was located at the base of the diverticulum. Initial cannulation resulted in opacification of the pancreatic duct. Subsequently I cannulated using a guidewire and a tapered-tip catheter and the CBD was cannulated without any difficulty. The guidewire was removed and contrast was injected into the CBD which revealed a 5 mm distal common bile duct stone. No biliary ductal dilation noted. At this time the catheter was exchanged with a biliary sphincterotome and a sphincterotomy was performed at 11 o'clock position and was extended to almost 7-8 mm in length. Following this an 11 mm balloon was passed over the guidewire into the proximal CBD and gently inflated and withdrawn and the CBD stone was extracted without any difficulty. Repeat occlusion cholangiogram was performed and no other filling defects were identified. Patient tolerated the procedure well. Impression: A 5 mm distal CBD stone status post biliary sphincterotomy and balloon stone extraction as described above Normal-appearing pancreatic duct Recommendations: The findings of this examination were discussed with the patient. Repeat labs in the morning. He'll be watched overnight. Will discuss with Dr. Razo.
--- NOTE | 2018-11-30 13:10 | FL ---
Fluoroscopy INDICATION: Pain FINDINGS: Fluoroscopy time: 19 seconds. Images obtained: 1. Single ERCP image with contrast within the common bile duct. IMPRESSIONS: 1. Documentation of fluoroscopy.
--- NOTE | 2018-11-30 16:48 | P.PN ---
Subjective Progress Note Date: 11/30/18 Patient is feeling well today no complaints of abdominal pain post ERCP. CBD stone was removed during ERCP today. Objective - Vital Signs Vital signs: Vital Signs Temp 97.7 F 11/30/18 13:15 Pulse 54 L 11/30/18 14:45 Resp 18 11/30/18 14:15 BP 134/77 11/30/18 14:45 Pulse Ox 96 11/30/18 14:45 Intake & Output 11/29/18 11/30/18 11/30/18 18:59 06:59 18:59 Intake Total 1550 1765 1550 Balance 1550 1765 1550 Intake: IV 800 Intake, IV Titration 1200 1165 750 Amount Piperacillin-Tazobactam 3 200 200 100 .375 gm In Sodium Chloride 0.9% 100 ml @ 25 mls/hr IVPB Q8H [facility] Rx#: [id number] Sodium Chloride 0.9% 1, 1000 965 650 000 ml @ 75 mls/hr IV . [id number] [facility] Rx#:[id number] Oral 350 600 0 Other: Voiding Method Toilet Toilet Toilet # Voids 4 2 3 - Constitutional General appearance: Present: cooperative - EENT Eyes: Present: normal appearance - Respiratory Details: nonlabored - Cardiovascular Rhythm: regular - Gastrointestinal Gastrointestinal Comment(s): S/NT/ND - Psychiatric Psychiatric: Present: A&O x's 3 - Labs CBC & Chem 7: 11/30/18 07:50 11/30/18 07:50 Labs: Abnormal Lab Results - Last 24 Hours (Table) 11/30/18 Range/Units 07:50 Chloride 110 H (98-107) mmol/L AST 60 H (17-59) U/L ALT 109 H (21-72) U/L Assessment and Plan Assessment: Acute cholecystitis Choledocholithiasis Plan: Patient underwent ERCP with CBD stone removal and sphincterotomy today. Plan to observe patient overnight and plan for lap cayden tomorrow if patient is stable. Clear liquids ok for tonight, NPO after midnight
[2018-11-30] MEDS: LACTATED RINGERS 1,000 ML IV SCH (16:52)
[2018-11-30] MEDS ORDERED: ONDANSETRON 4 MG/2 ML VIAL IVP PRN (17:33)
[2018-11-30] MEDS: SODIUM CHLORIDE 0.9% 1,000 ML IV SCH (18:02)
[2018-12-01] MEDS: SODIUM CHLORIDE 0.9% 1,000 ML IV SCH ×2 (01:45→13:10)
[2018-12-01] MEDS: PIPERACILLIN-TAZOBACTAM 3.375 GM in SODIUM CHLORIDE 0.9% 100 ML IVPB SCH ×3 (03:25→20:23)
[2018-12-01] MEDS: LACTATED RINGERS 1,000 ML IV SCH (04:44)
--- NOTE | 2018-12-01 07:08 | P.PN ---
Subjective This is a pleasant 63 years old male with past medical history of hernia repair. No other significant past medical history. He was not on home medication. He presents because of recurrent abdominal pain that happened 2 days ago, went away and came back yesterday, patient this. Umbilical about it/10 in severity felt like squeezing comes in waves. Associated with worst part and the RUQ area with tenderness. Also associated with nausea vomiting, he vomited about 5-6 times with no blood. He has little bowel movement with no blood. No shoulder pain. No fever. No chest pain or dyspnea. Patient is afebrile and vitals are stable. He has mild leukocytosis of 16.1 K, rest of labs including liver enzymes and creatinine are within normal limits. Urinalysis is not significant for infection. EKG showing normal sinus rhythm at [address] of the abdomen and pelvis with intravenous contrast showing stones in the region of the cystic duct and possible cholecystitis. No other acute abnormality as per radiologist. On admission patient was started on pain medication and Zosyn as well as IV fluids. 11/29/2018 Patient came with abdominal pain and right upper quadrant tenderness, pain is improving. No more nausea vomiting. However today he is nothing by mouth for possible laparoscopic cholecystectomy by the surgical team. Yesterday we repeated his liver ultrasound in view of abnormal gallbladder and biliary passages seen on the CAT scan of the abdomen. Liver with ultrasound showing dilated bile duct at 8 mm and hydropic gallbladder with sludge, calculi and mild wall thickening that goes on with his diagnosis of acute cholecystitis. 11/30/2018 Patient's abdominal pain is resolved. No nausea vomiting. No other complaint. Yesterday his laparoscopic cholecystectomy was canceled because of elevated liver enzymes serum bilirubin went up from 0.5 to 2.4, her liver enzymes AST 139 and ALT 163. MRCP is ordered and is pending. Depending on the results we may Need ERCP if the patient still have stones in his biliary ducts. Patient remains afebrile and dressed vitals are stable. 12/01/2018 Patient is status post MRCP/ERCP yesterday and stone removal, today this morning his doing fine with no abdominal pain or nausea vomiting. No diarrhea. Patient is nothing by mouth for going for laparoscopic cholecystectomy today Objective - Vital Signs Vital signs: Vital Signs Temp 98.2 F 12/01/18 05:00 Pulse 55 L 12/01/18 05:00 Resp 16 12/01/18 05:00 BP 114/64 12/01/18 05:00 Pulse Ox 95 12/01/18 05:00 Intake & Output 11/30/18 12/01/18 12/01/18 18:59 06:59 18:59 Intake Total 1550 1790 Balance 1550 1790 Intake: IV 800 Intake, IV Titration 750 950 Amount Piperacillin-Tazobactam 3 100 200 .375 gm In Sodium Chloride 0.9% 100 ml @ 25 mls/hr IVPB Q8H LASHAE Rx#: [id number] Sodium Chloride 0.9% 1, 650 750 000 ml @ 75 mls/hr IV . [id number] LASHAE Rx#:[id number] Oral 0 840 Other: Voiding Method Toilet Toilet # Voids 3 2 - Exam GENERAL: The patient is alert and oriented x3, not in any acute distress. Well developed, well nourished. HEENT: Pupils are round and equally reacting to light. EOMI. No scleral icterus. No conjunctival pallor. Normocephalic, atraumatic. No pharyngeal erythema. No thyromegaly. CARDIOVASCULAR: S1 and S2 present. No murmurs, rubs, or gallops. PULMONARY: Chest is clear to auscultation, no wheezing or crackles. -ABDOMEN: Soft, mild RUQ tenderness, no rebound tenderness, nondistended, normoactive bowel sounds. No palpable organomegaly. MUSCULOSKELETAL: No joint swelling or deformity. EXTREMITIES: No cyanosis, clubbing, or pedal edema. NEUROLOGICAL: Gross neurological examination did not reveal any focal deficits. SKIN: No rashes. - Labs CBC & Chem 7: 11/30/18 07:50 11/30/18 07:50 Labs: Abnormal Lab Results - Last 24 Hours (Table) 11/30/18 Range/Units 07:50 Chloride 110 H (98-107) mmol/L AST 60 H (17-59) U/L ALT 109 H (21-72) U/L Assessment and Plan Assessment: acute cholecystitis RUQ tenderness secondary to above, resolved Gallstone and stenosis close to cystic duct elevated liver enzymes and bilirubin Leukocytosis, secondary to above. Resolved Plan: This is a pleasant 63 years old male who presents with acute cholecystitis. Continue with IV fluids, antibiotics and pain management. Will follow-up in the surgery recommendation and for postop care, patient is going for laparoscopic cholecystectomy per surgical team. Labs and medication were reviewed.. Continue same treatment. Continue with symptomatic treatment. Resume home medication. Monitor lytes and vitals. DVT and GI prophylaxis. Further recommendations of the clinical course of the patient DVT prophylaxis: Subcutaneous heparin GI Prophylaxis: Pepcid PT/OT: Pending Prognosis is guarded
[2018-12-01 07:28] LABS: Basophils # (A) 0.1 k/uL (0-0.2); Basophils % (A) 1 %; Eosinophils # (A) 0.3 k/uL (0-0.7); Eosinophils % (A) 5 %; HCT 43.2 % (39.0-53.0); HGB 14.3 gm/dL (13.0-17.5); Lymphocytes # (A) 1.8 k/uL (1.0-4.8); Lymphocytes % (A) 24 %; MCH 28.7 pg (25.0-35.0); MCHC 33.2 g/dL (31.0-37.0); MCV 86.5 fL (80.0-100.0); Mean Platelet Volume 6.9; Monocytes # (A) 0.5 k/uL (0-1.0); Monocytes % (A) 6 %; Neutrophils # (A) 4.5 k/uL (1.3-7.7); Neutrophils % (A) 62 %; Platelet Count 252 k/uL (150-450); RBC 4.99 m/uL (4.30-5.90); RDW 13.5 % (11.5-15.5); WBC 7.3 k/uL (3.8-10.6)
[2018-12-01 07:36] LABS: Albumin 3.2 g/dL (3.5-5.0); Calcium 8.5 mg/dL (8.4-10.2); Total Protein 5.8 g/dL (6.3-8.2)
[2018-12-01] MEDS: FAMOTIDINE 20 MG/2 ML VIAL IV SCH ×2 (07:59→20:23)
[2018-12-01] MEDS: HEPARIN SODIUM,PORCINE 5,000 UNIT/ML 1 ML VIAL SQ SCH ×3 (07:59→20:23)
--- NOTE | 2018-12-01 08:41 | CONS ---
CONSULTATION DATE OF DICTATION: November 30, 2018 REASON FOR CONSULTATION: CBD stone. HISTORY OF PRESENT ILLNESS: The patient is a 63-year-old white male with no significant past medical history, admitted to the hospital because of recurrent epigastric pain for the last 2 days duration. He had an episode about 2 days ago that lasted for a few hours and has subsided. He had another episode. This time the pain was every intense radiating into the right upper quadrant area associated with nausea and vomiting. Came to the emergency room and was noted to have elevated LFTs and mild leukocytosis. CT of the abdomen and pelvis done showed stone in the region of the cystic duct with possible cholecystitis. He was started on broad-spectrum antibiotics. His serum transaminases were slightly increased and bilirubin went up to 2.1. Hence he had an MRCP this morning that showed a small distal common bile duct stone and hence we are consulted for an ERCP. The patient is feeling much better this morning. PAST MEDICAL HISTORY: Unremarkable. PAST SURGICAL HISTORY: Hernia repair. MEDICATIONS: At home none. ALLERGIES: ALLERGY TO . SOCIAL HISTORY: Former smoker. No alcohol use. FAMILY HISTORY: Mother ALS, brother has ALS. REVIEW OF SYSTEMS: CARDIOPULMONARY: No chest pain. No shortness of breath. GENITOURINARY: No dysuria or hematuria. MUSCULOSKELETAL: Unremarkable. SKIN: Unremarkable. ENDOCRINE: Unremarkable. PSYCHIATRIC: Unremarkable. NEUROLOGICAL: Unremarkable. ENT/VISION: Unremarkable. CONSTITUTIONAL: No recent weight loss. No fevers, chills or night sweats. PHYSICAL EXAMINATION: GENERAL: He appears comfortable. No apparent distress. VITAL SIGNS: Vital signs stable. Blood pressure 116/69. Pulse 64. Temperature 98.8. HEENT: Unremarkable. Conjunctivae pink. Sclerae anicteric. Oral cavity no lesions. NECK: No JVD or lymph node enlargement. CHEST: Clear to auscultation. HEART: Regular rate and rhythm. ABDOMEN: Soft. Bowel sounds are positive. There was minimal tenderness in the epigastric area. EXTREMITIES: No pedal edema. SKIN: No rashes. NEUROLOGIC: Alert and oriented x3. No focal deficits. LABS: Done at the time of admission to the hospital: WBC 16.1, hemoglobin 16, platelets normal. ALT, AST, T-bilirubin and alkaline phosphatase initially were normal. They went up to T-bilirubin was 2.4 yesterday. AST 139, ALT 163. Today AST is down to 60, ALT is 109 and T0bili 1.3. Amylase and lipase are normal. IMPRESSION: The patient presents to hospital with acute onset of severe epigastric pain radiating to the right upper quadrant area. Noted to have elevated serum transaminases and a CT scan showing gallstones. MRCP done this morning because of elevated LFTs yesterday and a bilirubin of 2.4 showed small CBD stone in the distal common bile duct. The patient is asymptomatic. RECOMMENDATIONS: 1. I had a lengthy discussion with the patient regarding proceeding with ERCP for CBD stone extraction and discussed with him the risks, benefits and complications including pancreatitis, perforation, bleeding, . 2. Continue with broad-spectrum antibiotics. 3. Patient is scheduled for an ERCP today. We will follow with you closely. Thank you for this consultation. WARREN / VIVIANN: [id number] /
[2018-12-01] MEDS ORDERED: IV FLUID CONTINUATION 1,000 ML IV ONE (11:19)
[2018-12-01] MEDS ORDERED: SCOPOLAMINE 1.5MG/72HR PATCH TRANSDERM ONE (12:01)
[2018-12-01] MEDS ORDERED: ePHEDrine SULFATE/0.9% NACL/PF 50 MG/5 ML SYRINGE IV ONE (13:08)
[2018-12-01] MEDS ORDERED: NEOSTIGMINE 1 MG/ML 10 ML VIAL ONE (13:08)
[2018-12-01] MEDS ORDERED: KETOROLAC 30 MG/ML 1 ML VIAL ONE (13:08)
[2018-12-01] MEDS ORDERED: LIDOCAINE 1% INJ 10MG/ML (20 ML MDV) ONE (13:08)
[2018-12-01] MEDS ORDERED: GLYCOPYRROLATE 0.2 MG/ML 2 ML VIAL ONE (13:08)
[2018-12-01] MEDS ORDERED: fentaNYL (PF) 50 MCG/ML 2 ML AMP ONE (13:08)
[2018-12-01] MEDS ORDERED: ROCURONIUM BROMIDE 10 MG/ML 10 ML VIAL IV ONE (13:08)
[2018-12-01] MEDS ORDERED: PROPOFOL 10 MG/ML 20 ML VIAL IV ONE (13:08)
[2018-12-01] MEDS ORDERED: MIDAZOLAM 2 MG/2 ML VIAL ONE (13:08)
[2018-12-01] MEDS ORDERED: BUPIVACAINE (PF) 0.25% 30 ML VIAL SQ ONE ×2 (13:36)
[2018-12-01] MEDS ORDERED: LACTATED RINGERS 1,000 ML IV ONE ×2 (13:48)
--- NOTE | 2018-12-01 14:40 | P.OP ---
Date of Procedure: 12/01/18 Preoperative Diagnosis: Cholecystitis Postoperative Diagnosis: Same Procedure(s) Performed: Laparoscopic cholecystectomy Anesthesia: NEVIN Surgeon: Aldo Pierre Estimated Blood Loss (ml): 10 Condition: stable Disposition: floor Description of Procedure: Patient was brought into the operative suite remained in the supine position underwent general endotracheal anesthesia per Department of anesthesia he was prepped and draped in the usual sterile fashion timeout was performed correct patient correct procedure correct site was verified. Local anesthetic was used to anesthetize the skin and subcutaneous tissues just to the right of the umbilicus and incision was made 12 mm and using a 12 mm Visiport the abdomen was entered under direct visualization and insufflated no injuries were noted 3 5mm ports were placed in the right upper quadrant. These were placed under direct visualization. The gallbladder was grasped at the fundus and retracted cephalad. The patient previously been placed in reverse Trendelenburg right side up. Adhesions to the gallbladder were taken down bluntly. The gallbladder was noted to be thickened and inflamed. Ayon's pouch was grasped and retracted the cystic duct and cystic artery were skeletonized critical view of safety was obtained. The cystic duct was noted to be dilated larger than the clip program instructor. The epigastric port was upsized to a 12 mm port and the cystic duct was stapled across using a 45 mm castillo load Endo SHARON stapler. Cystic duct was then doubly clipped and ligated. The gallbladder was removed from the liver bed using Bovie electrocautery. It was removed then through the epigastric port in an Endo Catch bag. The liver bed was inspected for hemostasis and irrigated which was noted. Hemostasis was noted. Using a 0 Vicryl with 8 of a Inocencio- Dahlia the fascia and the 2 12 mm port sites was closed. The rest of the ports removed under direct visualization and hemostasis was noted the abdomen was desufflated skin was closed with 4-0 Monocryl suture and skin glue. Patient tolerated the procedure well there are no apparent complications
[2018-12-01] MEDS: MORPHINE SULFATE 4 MG/ML SYRINGE IV PRN (19:13)
--- NOTE | 2018-12-01 19:56 | PN ---
PROGRESS NOTE DATE OF DICTATION: 12/01/2018 Patient is a 63-year-old pleasant white male who was admitted to the hospital with acute onset of abdominal pain and was noted to have mild elevation of serum transaminases. He underwent an ERCP yesterday that showed a 5 mm common bile duct stone that was extracted. Following the procedure, patient did well. This morning he denies any complaints. He reports no nausea, vomiting. He underwent gallbladder surgery by Dr. Pierre and he is doing well. PHYSICAL EXAMINATION: He appears comfortable. No apparent distress. VITAL SIGNS: Stable. Blood pressure is 126/68, pulse rate 63, temperature 97.9. HEENT examination unremarkable. Conjunctivae pink. Sclerae anicteric. Oral cavity no lesions. NECK: No JVD or lymph node enlargement. CHEST: Clear to auscultation. HEART: Regular rate and rhythm. ABDOMEN: Soft. Bowel sounds are positive. Mild tenderness in the epigastric area. EXTREMITIES: No pedal edema. SKIN: No rashes. NEUROLOGIC: Alert and oriented x3. No focal deficits. LABS: Labs from this morning show WBC 7.3, hemoglobin 14, platelets normal. Basic metabolic panel is within normal limits. ALT and AST are 30 and 73, respectively. T-bilirubin is 1. IMPRESSION: 1. Elevated liver function tests and epigastric pain, status post ERCP with common bile duct stone extraction yesterday. Patient doing well this morning. Denies any abdominal pain. Has some nausea. 2. Symptomatic gallstones, status post gallbladder surgery by Dr. Pierre this afternoon. Doing well. RECOMMENDATIONS: 1. Continue with antibiotics. 2. Clear liquid diet. Will sign off at this time. Please call us if needed if he has any symptoms. Thank you for this consultation. MMODL / IJN: [id number] /
[2018-12-02] MEDS: MORPHINE SULFATE 4 MG/ML SYRINGE IV PRN ×2 (02:32→07:50)
[2018-12-02] MEDS: SODIUM CHLORIDE 0.9% 1,000 ML IV SCH (04:31)
[2018-12-02] MEDS: PIPERACILLIN-TAZOBACTAM 3.375 GM in SODIUM CHLORIDE 0.9% 100 ML IVPB SCH ×2 (04:32→11:00)
[2018-12-02 05:54] VITALS: RESP 20
[2018-12-02] MEDS: LACTATED RINGERS 1,000 ML IV SCH (06:01)
[2018-12-02] MEDS: HEPARIN SODIUM,PORCINE 5,000 UNIT/ML 1 ML VIAL SQ SCH (07:48)
[2018-12-02] MEDS: FAMOTIDINE 20 MG/2 ML VIAL IV SCH (07:50)
[2018-12-02 09:38] LABS: HCT 42.5 % (39.0-53.0); HGB 13.9 gm/dL (13.0-17.5); MCH 28.7 pg (25.0-35.0); MCHC 32.6 g/dL (31.0-37.0); MCV 87.9 fL (80.0-100.0); Mean Platelet Volume 7.3; Platelet Count 256 k/uL (150-450); RBC 4.83 m/uL (4.30-5.90); RDW 15.3 % (11.5-15.5); WBC 11.1 k/uL (3.8-10.6)
[2018-12-02 10:07] LABS: Albumin 3.5 g/dL (3.5-5.0); Calcium 8.4 mg/dL (8.4-10.2); Potassium 3.9 mmol/L (3.5-5.1); Total Bilirubin 1.5 mg/dL (0.2-1.3); Total Protein 6.1 g/dL (6.3-8.2)
--- NOTE | 2018-12-02 10:48 | P.PN ---
Subjective Progress Note Date: 12/02/18 Patient seen and examined at bedside. Feeling well. Pain well controlled. Tolerating diet. Objective - Vital Signs Vital signs: Vital Signs Temp 98.1 F 12/02/18 05:00 Pulse 77 12/02/18 05:00 Resp 20 12/02/18 05:00 BP 102/53 12/02/18 05:00 Pulse Ox 95 12/02/18 05:00 Intake & Output 12/01/18 12/02/18 12/02/18 18:59 06:59 18:59 Intake Total 1400 500 Output Total 10 Balance 1390 500 Intake: IV 1400 Intake, IV Titration 500 Amount Piperacillin-Tazobactam 3 200 .375 gm In Sodium Chloride 0.9% 100 ml @ 25 mls/hr IVPB Q8H [facility] Rx#: [id number] Sodium Chloride 0.9% 1, 300 000 ml @ 75 mls/hr IV . [id number] LASHAE Rx#:[id number] Output: Estimated Blood Loss 10 Other: Voiding Method Toilet Toilet - Constitutional General appearance: Present: cooperative, no acute distress - Gastrointestinal Gastrointestinal Comment(s): Soft, nontender, nondistended, no rebound, no guarding, incision sites are clean, dry and intact - Psychiatric Psychiatric: Present: A&O x's 3 - Labs CBC & Chem 7: 12/02/18 08:32 12/02/18 08:32 Labs: Abnormal Lab Results - Last 24 Hours (Table) 12/02/18 12/02/18 Range/Units 08:32 08:32 WBC 11.1 H (3.8-10.6) k/uL Glucose 140 H (74-99) mg/dL Total Bilirubin 1.5 H (0.2-1.3) mg/dL Total Protein 6.1 L (6.3-8.2) g/dL Assessment and Plan Plan: 63-year-old male postoperative day #1 from laparoscopic cholecystectomy - Okay to advance diet - Mild increase in total bilirubin of 1.5, continue to follow
[2018-12-02 12:12] VITALS: BP 111/65; PULSE 58; TEMP 98.7
[2018-12-02] MEDS ORDERED: FAMOTIDINE 20 MG TAB PO SCH (21:00)
--- NOTE | 2018-12-03 08:06 | P.DS ---
Providers Date of admission: 11/29/18 11:45 Attending physician: Everett Jorge MD Consults: 11/28/18 03:50 Consult Physician Stat Consulting Provider: Aldo Pierre Consult Reason/Comments: acute cayden Do you want consulting provider notified?: Already Contacted 11/30/18 09:25 Consult Physician Routine Consulting Provider: Floridalma Carranza Consult Reason/Comments: Choledocholithiasis Do you want consulting provider notified?: Yes Primary care physician: Teofilo Lackey Hospital Course: Diagnoses: acute cholecystitis. Status post laparoscopic cholecystectomy Gallstone and stenosis close to cystic duct , status post MRCP/ERCP and stone removal RUQ tenderness secondary to above, resolved elevated liver enzymes and bilirubin, improving Leukocytosis, secondary to above. Resolved Hospital course: This is a pleasant 63 years old male with past medical history of hernia repair. No other significant past medical history. He was not on home medication. He presents because of recurrent abdominal pain that happened 2 days ago, associated with nausea vomiting, CT of the abdomen and pelvis with intravenous contrast showing stones in the region of the cystic duct and possible cholecystitis. iver enzymes and bilirubin were within normal on admission, however they got elevated next day and he underwent MRCP, followed by ERCP and stone removal by GI team. Patient today he underwent laparoscopic cholecystectomy by the surgical team. Patient showed interval improvement, no abdominal pain or nausea vomiting. Patient tolerating diet well. Liver enzymes and probing start improving. Patient was cleared for discharge by GI and surgery team Problems and management plan were discussed with the patient and he verbalized understanding and acceptance on the day of discharge , there was mild elevation of bilirubin up to 1.5, discussed with the surgeon and GI team and both agree pt still be discharge. i told the pt about this lab and recommended for him to check his liver function test with his doctors, written instructions are provided for him with the same and he agrees. Patient was found stable and can be discharged home however he needs follow-up as an outpatient. Patient was instructed to follow up with PCP within one week and patient agrees. Patient agrees with the appointments made for him for surgery and pcp. Patient instructed to follow up biopsy results for his gallb ladder surgery with his PCP and surgeon and he agrees Gen: patient is a AAOx3, no distress CVS: S1-S2, RRR, no murmur Lungs: B/L CTA, no wheezing -Abdomen: soft, no distention, no tenderness, positive bowel sounds. 3 puncture from his laparoscopic cholecystectomy are healing Extremity: no leg edema or induration Time spent more than 35 minutes Plan - Discharge Summary Discharge Rx Participant: No New Discharge Prescriptions: New HYDROcodone/APAP 5-325MG [Emin[place] 5-325] 1 tab PO Q6HR PRN 3 Days #15 tab PRN Reason: Pain Famotidine [Pepcid] 20 mg PO BID #30 tab Continue Fruit Based Multivitamin(Unknown) 1 tab PO DAILY Discharge Medication List Fruit Based Multivitamin(Unknown) 1 tab PO DAILY 11/28/18 [History] HYDROcodone/APAP 5-325MG [Eminence 5-325] 1 tab PO Q6HR PRN 3 Days #15 tab 12/01/18 [Rx] Famotidine [Pepcid] 20 mg PO BID #30 tab 12/02/18 [Rx] Follow up Appointment(s)/Referral(s): Aldo Pierre DO [Doctor of Osteopathic Medicine] - 12/12/18 1:00 pm (Please follow-up the biopsy results for your gallbladder surgery please check your ) Floridalma Carranza MD [STAFF PHYSICIAN] - 1 Week (patient will have to call and give insurance information before being seen at 's office) Teofilo Lackey DO [Primary Care Provider] - 12/09/18 11:00 am (pleaes check your liver function tests with your doctor ) Patient Instructions/Handouts: Hydrocodone/Acetaminophen (By mouth), Low Fat Diet (DC), Laparoscopic Cholecystectomy (DC), ERCP (Endoscopic Retrograde Cholangiopancreatography) (DC) Activity/Diet/Wound Care/Special Instructions: Diet low fat Activity restricted until follow up Discharge Disposition: HOME SELF-CARE
== END 2018-12-02 17:25 | disposition home or self-care (01) | DRG 418 ==
LOC: EC 22:29 → 3NMEDONC 11-28 03:50 → OBSVTOIN 11-29 11:45 → 3NMEDONC 11-30 10:58
PROVIDERS: ADMIT Internal Medicine; ATTEND Internal Medicine
PROC: 0FC98ZZ Extirpation of Matter from Common Bile Duct, Via Natural or Artificial Opening Endoscopic (ICD-10-PCS; 2018-11-30 09:00)
PROC: 0FT44ZZ Resection of Gallbladder, Percutaneous Endoscopic Approach (ICD-10-PCS; principal; 2018-12-01 12:00)
DX: K80.62 Calculus of gallbladder and bile duct with acute cholecystitis without obstruction (principal); K82.1 Hydrops of gallbladder; E78.00 Pure hypercholesterolemia, unspecified; Z87.891 Personal history of nicotine dependence; Z88.7 Allergy status to serum and vaccine
CPT/HCPCS: 36415; 43262; 43264; 71260; 74177; 74181; 74330; 76705; 80053; 81003; 82150; 82553; 83690; 84484; 85025; 85027; 85610; 85730; 88304; 93005; 96361; 96365; 96375; 99285

== ENCOUNTER → 2019-02-17 | Outpatient (CLI) | payer OTHER ==
--- NOTE | 2019-02-17 08:23 | MR ---
EXAMINATION TYPE: MR MRCP DATE OF EXAM: 02/17/2019 COMPARISON: 11/30/2018 HISTORY: Calculus of bile duct without cholangitis or cholecystitis without obstruction Standard multiplanar, multisequence MRI departmental protocol Multiplanar, multisequence images of the abdomen were acquired. Thin and thick slice MRCP images are performed on MRI scanner. FINDINGS: There's been the interval cholecystectomy. No evidence for biliary leak. Common bile duct is mildly p rominent at the tripp hepatis at 6.5 mm with mild tapering noted at the mid and distal portions. This could be related to long segment stricture. There is no evidence of choledocholithiasis. Intrahepati c biliary tree appears normal caliber. The liver is of normal size. No intrahepatic lesion identified. The spleen is normal size. No intrasplenic lesions seen. Adrenal glands are free of nodule or hyperplasia. The kidneys appear symmetric without solid or cystic mass. No hydronephrosis. The pancreas is free of lesion. Normal-appearing pancreatic duct. Abdominal aorta as visualized is of normal caliber. No evidence of adenopathy within the imaged field. IMPRESSION: There's been the interval cholecystectomy. Common bile duct is mildly prominent tripp hepatis at 6.5 mm with mild tapering noted at the mid and distal portions. This could be related to long segment str icture.
== END | disposition home or self-care (01) ==
LOC: RADMRIMAIN 06:47
PROVIDERS: ATTEND Student in an Organized Health Care Education/Training Program
DX: K76.89 Other specified diseases of liver (principal); Z90.49 Acquired absence of other specified parts of digestive tract
CPT/HCPCS: 74181